=== PATIENT | female | born 1990 | race Caucasian/White ===

== ENCOUNTER 2020-12-19 06:32 | Inpatient (IN) | payer OTHER ==
[~2020-12-19] VITALS: Ht 162.6 cm; Wt 54.4 kg
[2020-12-19 07:19] LABS: HEMOGLOBIN 11.6 gm/dl (12.3-15.3); RED BLOOD COUNT 3.88 M/UL (4.00-5.10); WHITE BLOOD COUNT 16.2 K/UL (4.5-11.0)
[2020-12-19 08:09] LABS: BUN/CREATININE RATIO 12 (0-10)
[2020-12-20 06:13] LABS: BUN/CREATININE RATIO 15 (0-10)
[2020-12-20 06:16] LABS: HEMOGLOBIN 9.1 gm/dl (12.3-15.3); RED BLOOD COUNT 3.04 M/UL (4.00-5.10)
[2020-12-23 11:39] LABS: HEMOGLOBIN 7.5 gm/dl (12.3-15.3); RED BLOOD COUNT 2.49 M/UL (4.00-5.10); WHITE BLOOD COUNT 6.5 K/UL (4.5-11.0)
[2020-12-23 12:12] LABS: BUN/CREATININE RATIO 9 (0-10)
[2020-12-24 11:16] LABS: HEMOGLOBIN 7.9 gm/dl (12.3-15.3); RED BLOOD COUNT 2.7 M/UL (4.00-5.10); WHITE BLOOD COUNT 7.6 K/UL (4.5-11.0)
[2020-12-24 11:38] LABS: BUN/CREATININE RATIO 12 (0-10)
[2020-12-25 10:54] LABS: BUN/CREATININE RATIO 13 (0-10)
[2020-12-26 09:59] LABS: BUN/CREATININE RATIO 23 (0-10)
[2020-12-27 10:48] LABS: BUN/CREATININE RATIO 20 (0-10)
[2020-12-28 11:17] LABS: BUN/CREATININE RATIO 19 (0-10)
[2020-12-29] MEDS ORDERED: IBUPROFEN600 MG PO (09:59)
== END 2020-12-29 12:44 | disposition home or self-care (01) | DRG 982 ==
LOC: ER1 06:32 → M/S 07:37 → CDU 07:37 → M/S 17:41
PROVIDERS: Family Medicine; ADMIT Surgery
PROC: 0DBA0ZZ Excision of Jejunum, Open Approach (ICD-10-PCS; 2020-12-19 09:15)
PROC: 0DBB0ZZ Excision of Ileum, Open Approach (ICD-10-PCS; 2020-12-19 09:15)
PROC: 3E0336Z Introduction of Nutritional Substance into Peripheral Vein, Percutaneous Approach (ICD-10-PCS; principal; 2020-12-24)
DX: S31.609A Unspecified open wound of abdominal wall, unspecified quadrant with penetration into peritoneal cavity, initial encounter (principal); R65.10 Systemic inflammatory response syndrome (SIRS) of non-infectious origin without acute organ dysfunction; S36.81XA Injury of peritoneum, initial encounter; D62 Acute posthemorrhagic anemia; Z20.822 Contact with and (suspected) exposure to COVID-19; Z79.899 Other long term (current) drug therapy; S31.134A Puncture wound of abdominal wall without foreign body, left lower quadrant without penetration into peritoneal cavity, initial encounter; B18.2 Chronic viral hepatitis C; Z88.8 Allergy status to other drugs, medicaments and biological substances
CPT/HCPCS: 36415; 36556; 71045; 71260; 72170; 74019; 80048; 80053; 82962; 83605; 83735; 84100; 84466; 84478; 85025; 85027; 85610; 85730; 86850; 86900; 86901; 90471; 90715; 96374; 97116-GP-CQ; 97161; 97530-GP-CQ; 99285; C9113; G0480; J0690; J1650; J2250; J2270; J2543; J3010; J3480; J7030; J7120; Q9967; U0002